=== PATIENT | male | born 1995 | race Caucasian/White ===

== ENCOUNTER 2018-04-19 10:50 | Emergency (ER) | payer OTHER ==
[~2018-04-19] VITALS: Ht 188 cm; Wt 74.8 kg
[2018-04-19 10:56] VITALS: Ht 188 cm; Wt 74.8 kg
[2018-04-19] MEDS: OLANZAPINE 5 MG TAB PO ONE ×2 (11:43→12:55)
[2018-04-19] MEDS ORDERED: HALOPERIDOL 5 MG INJ ONE (12:45)
[2018-04-19] MEDS ORDERED: LORAZEPAM 2 MG INJ ONE (12:46)
[2018-04-19] MEDS ORDERED: HALOPERIDOL 5 MG INJ IM STA (12:48)
[2018-04-19] MEDS ORDERED: LORAZEPAM 2 MG INJ IM STA (12:48)
--- NOTE | 2018-04-19 12:52 | PSY ---
Date/Time of Note Date/Time of Note DATE: 04/19/18 TIME: 13:46 Psychiatric Subjective Eval Consent Pt consented to telemedicine: Yes Subjective Evaluation Patient location: emergency Chief Complaint: BIB MOTHER FOR EPISODE OF ANXIETY POSSIBLE DRUG USE BIZARRE BEHAVIOR Reason for consult: psychosis History of present illness over the last few days, the patient's condition has been deteriorating. the patient has no prior psychiatric history. however, he has been smoking large amounts of marijuana. the patient is quite paranoid. he is acting in a bizarre way. he is not taking care of himself. he took his girlfriend's phone away because he thought there were being watched. if he is there are people watching him. he has become agitated with his mother. when speaking with me, his affect is inappropriate to the conversation. he laughs at inappropriate moments. he appears paranoid. he closes his eyes. he denies having any thoughts of hurting himself or other people. he told me he would take medications. however, later on he attempts to run away from the emergency room. he does not appear to trust anyone. this has been a significant change in his condition. the patient appears to be gravely disabled at this time. i suspect this psychosis is substance induced, but it could also be a manifestation of some other underlying psychiatric disorder. in view of the patient's age, it is possible. Past psychiatric history none. no hospitalizations, no suicide attempts. Substance Abuse Substance use: other Substance abuse history: Yes Prior substance abuse treatmen: No Social History Marital status: single Level of education: college degree DPA/Conservatorship: No Psychiatric Objective Eval Review of Systems: Review of Systems: Not Applicable Mental Status Examination: Appearance: Groomed Eye Contact: Good Psychomotor Activity: Agitated Behavior: Suspicious, Guarded Speech: Clear AFFECT: Libile Mood: Irritable Though Process: Illogical Thought Content: Delusions Suicidal: No Homicidal: No On 72 hour hold: No Orientation: x4 Cognition: Alert Insight: Impared Judgement: Impared Attention Span: Distractible Laboratory Results Laboratory Tests Test 04/19/18 11:50 04/19/18 11:52 White Blood Count 4.2 10^3/ul Red Blood Count 4.97 10^6/ul Hemoglobin 15.8 g/dl Hematocrit 51.1 % Mean Corpuscular Volume 102.8 fl Mean Corpuscular Hemoglobin 31.8 pg Mean Corpuscular Hemoglobin Concent 30.9 g/dl Red Cell Distribution Width 12.7 % Platelet Count 179 10^3/UL Mean Platelet Volume 11.1 fl Immature Granulocytes % 0.200 % Neutrophils % 52.1 % Lymphocytes % 37.0 % Monocytes % 9.3 % Eosinophils % 0.2 % Basophils % 1.2 % Nucleated Red Blood Cells % 0.0 /100WBC Immature Granulocytes # 0.010 10^3/ul Neutrophils # 2.2 10^3/ul Lymphocytes # 1.6 10^3/ul Monocytes # 0.4 10^3/ul Eosinophils # 0.0 10^3/ul Basophils # 0.1 10^3/ul Nucleated Red Blood Cells # 0.0 10^3/ul Sodium Level 140 mmol/L Potassium Level 4.0 mmol/L Chloride Level 103 mmol/L Carbon Dioxide Level 24 mmol/L Anion Gap 13 Blood Urea Nitrogen 18 mg/dl Creatinine 0.86 mg/dl Est Glomerular Filtrat Rate mL/min > 60 mL/min Glucose Level 110 mg/dl Calcium Level 10.0 mg/dl Total Bilirubin 0.8 mg/dl Direct Bilirubin 0.00 mg/dl Indirect Bilirubin 0.8 mg/dl Aspartate Amino Transf (AST/SGOT) 29 IU/L Alanine Aminotransferase (ALT/SGPT) 14 IU/L Alkaline Phosphatase 63 IU/L Total Protein 8.0 g/dl Albumin 5.0 g/dl Globulin 3.00 g/dl Albumin/Globulin Ratio 1.66 Salicylates Level < 1.0 mg/dl Acetaminophen Level < 10.0 ug/ml Ethyl Alcohol Level < 10.0 mg/dl Urine Color YELLOW Urine Clarity CLEAR Urine pH 5.0 Urine Specific [place] 1.021 Urine Ketones 2+ mg/dL Urine Nitrite NEGATIVE mg/dL Urine Bilirubin NEGATIVE mg/dL Urine Urobilinogen NEGATIVE mg/dL Urine Leukocyte Esterase NEGATIVE [place]/ul Urine Hemoglobin NEGATIVE mg/dL Urine Glucose NEGATIVE mg/dL Urine Total Protein NEGATIVE mg/dl Urine Opiates Screen Negative Urine Barbiturates Negative Urine Amphetamines Screen Negative Urine Benzodiazepines Screen Negative Urine Cocaine Screen Negative Urine Cannabinoids Positive Assessment and Plan Assessment/Diagnosis Diagnosis substance-induced psychosis Recommendation/Plan Medication Management recommend placing the patient on the 5150 because of grave disability. the patient is unable to take care of his basic needs as a result of psychosis. the patient refuses oral medications and is quite agitated. I recommend haldol 5 mg im with ativan 2 mg im every 6 hours as needed. Multiple antipsychotics: No Discharge Disposition: Other (Other) Legal Status: Place involuntary hold Other i recommend psychiatric reevaluation in about 12 hours. VERNA LUZ Apr 19, 2018 12:52
--- NOTE | 2018-04-19 14:01 | ERD ---
ER Documentation Chief Complaint Chief Complaint BIB MOTHER FOR EPISODE OF ANXIETY POSSIBLE DRUG USE BIZARRE BEHAVIOR HPI 22-year-old man with no previous psychiatric history brought in by parents and friends for 1-2 months of increasing bizarre behavior, agitation, paranoia, speaking tangentially, and acting bizarre. He has also had difficulty sleeping at night and has had episodes of laughing inappropriately or answering questions unusually. Over the last few months he has been smoking marijuana heavily but denies other drug use. He has had no recent fevers or chills, no chest pain, no LOC, no recent trauma, no complaints of headache or blurry vision. ROS All systems reviewed and are negative except as per history of present illness. Medications Home Meds No Active Prescriptions or Reported Meds Allergies Allergies: Coded Allergies: No Known Allergy (Unverified , 04/19/18) PMhx/Soc Medical and Surgical Hx: pt denies Medical Hx, pt denies Surgical Hx History of Surgery: No Anesthesia Reaction: No Hx Neurological Disorder: No Hx Respiratory Disorders: No Hx Cardiac Disorders: No Hx Psychiatric Problems: No Hx Miscellaneous Medical Probl: No Hx Alcohol Use: No Hx Substance Use: Yes (marijuana) Hx Tobacco Use: No Smoking Status: Current some day smoker FmHx Severe anxiety in mother and a history of maternal side bipolar disorder Family History: No diabetes Physical Exam Vitals Vital Signs Date Temp Pulse Resp B/P (MAP) Pulse Ox O2 O2 Flow FiO2 Time Delivery Rate 04/19/18 98.7 103 18 147/85 98 12:50 (105) 04/19/18 89 17 166/100 99 10:56 (122) Physical Exam Const: No acute distress, afebrile, agitated Head: Atraumatic Eyes: Normal Conjunctiva ENT: Normal External Ears, Nose and Mouth. Neck: Full range of motion. No meningismus. Resp: Clear to auscultation bilaterally Cardio: Regular rate and rhythm, no murmurs Abd: Soft, non tender, non distended. Normal bowel sounds Skin: No petechiae or rashes Back: No midline or flank tenderness Ext: No cyanosis, or edema Neur: Awake and alert x3, no focal deficits or facial asymmetry, gait normal Psych: Agitated, paranoid, bizarre behavior, speech is tangential Result Diagram: 04/19/18 1150 04/19/18 1150 Results 24 hrs Laboratory Tests Test 04/19/18 11:50 04/19/18 11:52 White Blood Count 4.2 10^3/ul Red Blood Count 4.97 10^6/ul Hemoglobin 15.8 g/dl Hematocrit 51.1 % Mean Corpuscular Volume 102.8 fl Mean Corpuscular Hemoglobin 31.8 pg Mean Corpuscular Hemoglobin Concent 30.9 g/dl Red Cell Distribution Width 12.7 % Platelet Count 179 10^3/UL Mean Platelet Volume 11.1 fl Immature Granulocytes % 0.200 % Neutrophils % 52.1 % Lymphocytes % 37.0 % Monocytes % 9.3 % Eosinophils % 0.2 % Basophils % 1.2 % Nucleated Red Blood Cells % 0.0 /100WBC Immature Granulocytes # 0.010 10^3/ul Neutrophils # 2.2 10^3/ul Lymphocytes # 1.6 10^3/ul Monocytes # 0.4 10^3/ul Eosinophils # 0.0 10^3/ul Basophils # 0.1 10^3/ul Nucleated Red Blood Cells # 0.0 10^3/ul Sodium Level 140 mmol/L Potassium Level 4.0 mmol/L Chloride Level 103 mmol/L Carbon Dioxide Level 24 mmol/L Anion Gap 13 Blood Urea Nitrogen 18 mg/dl Creatinine 0.86 mg/dl Est Glomerular Filtrat Rate mL/min > 60 mL/min Glucose Level 110 mg/dl Calcium Level 10.0 mg/dl Total Bilirubin 0.8 mg/dl Direct Bilirubin 0.00 mg/dl Indirect Bilirubin 0.8 mg/dl Aspartate Amino Transf (AST/SGOT) 29 IU/L Alanine Aminotransferase (ALT/SGPT) 14 IU/L Alkaline Phosphatase 63 IU/L Total Protein 8.0 g/dl Albumin 5.0 g/dl Globulin 3.00 g/dl Albumin/Globulin Ratio 1.66 Salicylates Level < 1.0 mg/dl Acetaminophen Level < 10.0 ug/ml Ethyl Alcohol Level < 10.0 mg/dl Urine Color YELLOW Urine Clarity CLEAR Urine pH 5.0 Urine Specific [place] 1.021 Urine Ketones 2+ mg/dL Urine Nitrite NEGATIVE mg/dL Urine Bilirubin NEGATIVE mg/dL Urine Urobilinogen NEGATIVE mg/dL Urine Leukocyte Esterase NEGATIVE [place]/ul Urine Hemoglobin NEGATIVE mg/dL Urine Glucose NEGATIVE mg/dL Urine Total Protein NEGATIVE mg/dl Urine Opiates Screen Negative Urine Barbiturates Negative Urine Amphetamines Screen Negative Urine Benzodiazepines Screen Negative Urine Cocaine Screen Negative Urine Cannabinoids Positive Current Medications Medications Dose Sig/Trini Start Time Status Last (Trade) Ordered Route PRN Stop Time Admin Dose Reason Admin Olanzapine 5 mg ONCE ONCE 04/19/18 DC (Zyprexa) PO 12:00 04/19/18 12:01 Haloperidol 5 mg STK-MED 04/19/18 DC (Haldol) ONCE .ROUTE 12:45 04/19/18 12:46 Lorazepam 2 mg STK-MED 04/19/18 DC (Ativan) ONCE .ROUTE 12:46 04/19/18 12:47 Lorazepam 2 mg ONCE STAT 04/19/18 DC 04/19/18 (Ativan) IM 12:48 04/19/18 12:56 12:50 Haloperidol 5 mg ONCE STAT 04/19/18 DC 04/19/18 (Haldol) IM 12:48 04/19/18 12:56 12:50 Procedures/MDM I attempted management initially with oral olanzapine although patient refused and then ran out of the emergency department, he had to be coaxed back by security and family members. He was running around the parking lot during this episode and then later while in the ED became more agitated and somewhat threatening to staff. He was evaluated by tele-psychiatry who recommended 5150 psychiatric hold for grave disability I sedated the patient with lorazepam 2 mg IM x1 and haloperidol 5 mg IM x1. Patient was placed in four-point restraints for his own protection. CBC and electrolytes are normal, liver function tests normal, drug screen positive for marijuana, aspirin Tylenol ethanol levels negative. Urinalysis negative for infection. Patient's behavioral symptoms have stabilized while in the department. Patient is medically cleared and appropriate for psychiatric evaluation and work up. No e/o neurologic, toxic, infectious, or metabolic cause. We are in the process at this time of transferring the patient to a psychiatric facility he will also require a formal PET evaluation. Departure Diagnosis: Primary Impression: Acute psychosis Condition: JIE Mccarthy MD Apr 19, 2018 14:00
[2018-04-19 20:09] VITALS: BP 130/79; PULSE 79; RESP 16
== END 2018-04-19 20:20 ==
LOC: E/R 10:50
DX: F23 Brief psychotic disorder (principal); F17.210 Nicotine dependence, cigarettes, uncomplicated
CPT/HCPCS: 36415; 80053; 80307; 81003; 85025; 96372; 99285; J1630; J2060